=== PATIENT | female | born 1955 | race Caucasian/White ===

== ENCOUNTER 2017-11-25 10:23 | Emergency (ER) | payer OTHER ==
[~2017-11-25] VITALS: Ht 167.6 cm; Wt 99.8 kg
[~2017-11-25 10:23] MED LIST: ATORVASTATIN CA40 MG PO; AZOR 10-40 MG1 EACH; BAYER CHEWABLE81 MG PO; CARVEDILOL12.5 MG PO; CARVEDILOL3.125 MG PO; CIPROFLOXACIN500 M1 PO; CLONIDINE0.1 PO; COLESTID1 GM PO; CRESTOR20 MG PO; EFFEXOR50 MG PO; ELIQUIS5 MG PO; FLAGYL500 MG PO; FLEXERIL PO; HYDROCHLOROTHIA25 M1 PO; HYDROCHLOROTHIA25 M2 PO; LEVOTHYROXIN0.025 MG PO; LISINOPRIL20 MG PO; LISINOPRIL5 MG PO; LOW DOSE ASPIRI81 M1 PO; NEXIUM; NITROSTAT0.4 MG SL; NORVASC5 MG PO; PHENERGAN 25 MG25 M1 PO; PLAVIX 75 MG TA75 MG PO; PRESTIQUE; PREVACID 24HR15 MG PO; SORINE 80 MG TA80 M1 PO; TIKOSYN.25 PO; TIKOSYN.5 PO; TRAMADOL 50 MG50 MG PO; TRAZODONE 150150 M1 PO; VENLAFAXINE HC150 M1 PO; VICODIN 5-5001 EACH PO; XANAX 0.25 MG0.25 MG PO; ZETIA10 MG PO; ZOFRAN ODT4 MG PO; ZOFRAN4 MG PO
[2017-11-25] MEDS ORDERED: LOPRESSOR25 PO (10:36)
[2017-11-25] MEDS ORDERED: OMEPRAZOLE40 MG PO (10:36)
[2017-11-25] MEDS ORDERED: METFORMIN HCL500 MG PO (10:36)
[2017-11-25] MEDS ORDERED: CARDIZEM CD240 MG PO (10:36)
[2017-11-25 10:57] LABS: ABSOLUTE LYMPHOCYTES 1.6 thou/uL (0.8-5.3); ABSOLUTE MONOCYTES 0.6 thou/uL (0.0-1.2); ABSOLUTE NEUTROPHILS 7.2 thou/uL (1.6-8.1); BASOPHILS 0.2 %; EOSINOPHILS 0.1 %; HEMATOCRIT 40.1 % (37.0-47.0); HEMOGLOBIN 12.6 gm/dL (12.0-15.0); LYMPHOCYTES 16.7 %; MCH 24.4 pg (26.0-34.0); MCHC 31.4 g/dL (28.0-37.0); MCV 77.6 fL (80.0-100.0); MONOCYTES 5.9 %; MPV 8.2 fl. (7.2-11.1); NUCLEATED RBCS 0 /100WBC; PLATELET COUNT* 348 thou/uL (150-400); POLYS 77.1 %; RBC 5.17 mil/uL (4.20-5.00); RDW-CV 16.6 % (10.5-14.5); WBC 9.3 thou/uL (4.0-11.0)
[2017-11-25 11:01] LABS: POTASSIUM 3.8 mmol/L (3.5-5.1)
[2017-11-25 11:06] LABS: ALBUMIN 3.9 g/dL (3.4-5.0); TOTAL BILIRUBIN 0.6 mg/dL (<0.1-1.0); TOTAL PROTEIN 7.9 g/dL (6.4-8.2)
[2017-11-25 11:07] LABS: URINE BILIRUBIN NEGATIVE (Negative); URINE BLOOD TRACE (Negative); URINE CLARITY CLEAR; URINE COLOR YELLOW; URINE GLUCOSE-RANDOM 2+ (Negative); URINE KETONES NEGATIVE (Negative); URINE LEUKOCYTES-REFLEX 1+ (Negative); URINE NITRITE-REFLEX NEGATIVE (Negative); URINE PROTEIN TRACE (Negative); URINE SPECIFIC GRAVITY >= 1.030 (1.005-1.030); URINE UROBILINOGEN 0.2 E.U./dl (0.2-1.0)
[2017-11-25 11:19] LABS: BACTERIA-REFLEX >30 Many /HPF (None Seen); CASTS None Seen /LPF (None Seen); CRYSTALS None Seen /LPF (None Seen); MUCUS None Seen strn/LPF (None Seen); SQUAMOUS >10 Many /LPF (0-3); URINE RBC 3-10 Few /HPF (0-2); URINE WBC-REFLEX >25 Many /HPF (0-5)
[2017-11-25] MEDS ORDERED: MACROBID 100 M100 M1 PO (11:42)
[2017-11-25 12:06] VITALS: BP 111/74
== END 2017-11-25 12:07 | disposition home or self-care (01) ==
LOC: M.ERS 10:23
PROVIDERS: Emergency Medicine
DX: K52.9 Noninfective gastroenteritis and colitis, unspecified (principal); N39.0 Urinary tract infection, site not specified; I10 Essential (primary) hypertension; E78.00 Pure hypercholesterolemia, unspecified; E11.9 Type 2 diabetes mellitus without complications; K21.9 Gastro-esophageal reflux disease without esophagitis; I25.2 Old myocardial infarction; Z88.0 Allergy status to penicillin; Z88.5 Allergy status to narcotic agent

== ENCOUNTER → 2018-04-02 | Outpatient (CLI) | payer OTHER ==
[~2018-04-02] MED LIST changes: +CARDIZEM CD240 MG PO; +LOPRESSOR25 PO; +MACROBID 100 M100 M1 PO; +METFORMIN HCL500 MG PO; +OMEPRAZOLE40 MG PO
== END ==
LOC: M.RAD 12:53 → M.CT 13:30
DX: K57.30 Diverticulosis of large intestine without perforation or abscess without bleeding (principal); N91.2 Amenorrhea, unspecified; N94.89 Other specified conditions associated with female genital organs and menstrual cycle; I10 Essential (primary) hypertension; E11.9 Type 2 diabetes mellitus without complications; E78.00 Pure hypercholesterolemia, unspecified; E78.5 Hyperlipidemia, unspecified; F41.9 Anxiety disorder, unspecified; K21.9 Gastro-esophageal reflux disease without esophagitis; Z78.0 Asymptomatic menopausal state; Z88.0 Allergy status to penicillin

== ENCOUNTER → 2018-10-29 | Outpatient (CLI) | payer OTHER ==
[2018-10-29 09:42] VITALS: BP 163/98
[2018-10-29 09:45] VITALS: BP 156/94
[2018-10-29 09:46] VITALS: BP 162/85
[2018-10-29 09:50] VITALS: BP 159/86
[2018-10-29 09:52] VITALS: BP 153/72
--- NOTE | 2018-10-29 15:58 | TEE ---
[place] [address] TRANSESOPHAGEAL ECHOCARDIOGRAM Name: MARK WILLSON Room: [facility]#: [id number] Admission: 10/29/18 Attend Phys: Matt Keith MD Discharge: Date of : 55 Date of Service: 10/29/18 1558 Report #: [id number] THIS REPORT FOR: //name// APPROVED REPORT Study performed: 10/29/2018 09:20:19 EXAM: Transesophageal Echocardiogram Patient Location: Out-Patient Status: routine BSA: 2.10 HR: 71 bpm BP: 138/88 mmHg Rhythm: NSR Other Information Study Quality: Excellent Indications Pre-ablation Echo Enhancing Agent Indication: Rule out Shunt Agent(s) / Amount(s) Used: Agitated Saline 20 cc Procedure After obtaining informed consent, patient underwent transesophageal echo in the [employer]. Type of Sedation : Conscious Sedation Sedation start time: 937 Case end Time: 954 Sedation was achieved intravenously with: Versed () Fentanyl () Transesophageal probe was inserted and advanced into esophagus without difficulty by Matt Keith MD, [facility]. Echo enhancement indication: R/O Septal defect. Echo enhancement agent administered: Agitated Saline The ADORE was performed without complications. Throughout the procedure, the blood pressure, pulse oximetry, cardiac rhythm, and rate were monitored. The patient tolerated the procedure without adverse effects. Recovery from conscious sedation was uneventful and vital signs were stable. Transgastric views were unobtainable. Left Ventricle [address] [address] TRANSESOPHAGEAL ECHOCARDIOGRAM Name: MARK WILLSON Room: [facility]#: [id number] Admission: 10/29/18 Attend Phys: Matt Keith MD Discharge: Date of : 55 Date of Service: 10/29/18 1558 Report #: [id number] The left ventricle is normal size. There is normal LV segmental wall motion. There is normal left ventricular wall thickness. Left ventricular systolic function is normal. The left ventricular ejection fraction is within the normal range. LVEF is 60-65%. Right Ventricle The right ventricle is normal size. The right ventricular systolic function is normal. Pacemaker lead is present in the right ventricle. Atria Left atrium is moderately dilated. No thrombus is visualized in the left atrium or appendage. Interatrial septum is intact without evidence of ASD or PFO. The right atrium size is normal. Aortic Valve The aortic valve is normal in structure. No aortic regurgitation is present. There is no aortic valvular stenosis. Mitral Valve The mitral valve is normal in structure. Mild mitral regurgitation. No evidence of mitral valve stenosis. Tricuspid Valve The tricuspid valve is normal in structure. There is no tricuspid valve regurgitation noted. Pulmonic Valve The pulmonary valve is normal in structure. There is no pulmonic valvular regurgitation. Great Vessels The aortic root is normal in size. Pericardium There is no pericardial effusion. <Conclusion> LVEF is 60-65%. Left atrium is moderately dilated. No thrombus is visualized in the left atrium or appendage. Mild mitral regurgitation. Interatrial septum is intact without evidence of ASD or PFO. <ELECTRONICALLY SIGNED> By: Matt Keith MD, [facility] 10/29/18 1558 1558 1558 Matt Keith MD, FACC /INF
== END | disposition home or self-care (01) ==
LOC: M.CL 08:06
DX: I34.0 Nonrheumatic mitral (valve) insufficiency (principal); I11.9 Hypertensive heart disease without heart failure; E78.5 Hyperlipidemia, unspecified; K21.9 Gastro-esophageal reflux disease without esophagitis; F41.9 Anxiety disorder, unspecified; Z88.0 Allergy status to penicillin; Z91.041 Radiographic dye allergy status; Z88.8 Allergy status to other drugs, medicaments and biological substances; Z79.899 Other long term (current) drug therapy; Z87.440 Personal history of urinary (tract) infections; Z98.890 Other specified postprocedural states; Z90.49 Acquired absence of other specified parts of digestive tract; Z98.51 Tubal ligation status; Z82.49 Family history of ischemic heart disease and other diseases of the circulatory system